=== PATIENT | female | born 1960 | race Caucasian/White ===

== ENCOUNTER 2018-01-11 16:53 | Emergency (ER) | payer MEDICARE ==
[2018-01-11] MEDS ORDERED: ASPIRIN 81 MG TABLET, CHEWABLE PO ONE (17:23)
[2018-01-11] MEDS ORDERED: IPRATROPIUM/ALBUTEROL 0.5-2.5 MG/3 ML AMPUL NEB ONE (17:28)
[2018-01-11] MEDS ORDERED: PREDNISONE 20 MG TABLET PO ONE (17:28)
--- NOTE | 2018-01-11 17:30 | ER Document Report ---
ED Medical Screen (RME) - General Chief Complaint: Chest Pain Stated Complaint: CHEST PAIN Time Seen by Provider: 01/11/18 17:22 Notes: The patient is a 57-year-old female, past medical history asthma, presents with 5 hours of worsening shortness of breath and chest pain. She took an albuterol inhaler and Motrin around 11:00. PE: Diffuse wheezing, mild tachypnea, RRR I have greeted and performed a rapid initial assessment of this patient. A comprehensive ED assessment and evaluation of the patient, analysis of test results and completion of the medical decision making process will be conducted by additional ED providers. TRAVEL OUTSIDE OF THE [place] IN LAST 30 DAYS: No - Related Data Allergies/Adverse Reactions: Penicillins Allergy (Verified 01/11/18 16:54) Sulfa (Sulfonamide Antibiotics) Allergy (Verified 01/11/18 16:54) Past Medical History - Social History Chew tobacco use (# tins/day): No Frequency of alcohol use: Rare Drug Abuse: None Pulmonary Medical History: Reports: Hx Asthma Renal/ Medical History: Denies: Hx Peritoneal Dialysis GI Medical History: Reports: Hx Gastroesophageal Reflux Disease Musculoskeltal Medical History: Reports Hx Arthritis - osteoarthritis Past Surgical History: Reports: Hx Abdominal Surgery - umbilical mesh Physical Exam - Vital signs Vitals: Temp Pulse Resp BP Pulse Ox 98.5 F 92 24 H 126/79 H 96 01/11/18 16:57 01/11/18 16:57 01/11/18 16:57 01/11/18 16:57 01/11/18 16:57 Course - Vital Signs Vital signs: Temp Pulse Resp BP Pulse Ox 98.5 F 92 24 H 126/79 H 96 01/11/18 16:57 01/11/18 16:57 01/11/18 16:57 01/11/18 16:57 01/11/18 16:57
--- NOTE | 2018-01-11 17:39 | RADIOLOGY REPORT (SQ) ---
EXAM DESCRIPTION: CHEST SINGLE VIEW COMPLETED DATE/TIME: 01/11/2018 5:31 pm REASON FOR STUDY: chest pain COMPARISON: None. EXAM PARAMETERS: NUMBER OF VIEWS: One view. TECHNIQUE: Single frontal radiographic view of the chest acquired. RADIATION DOSE: NA LIMITATIONS: None. FINDINGS: LUNGS AND PLEURA: Probable scarring at the left lung base. No opacities, masses or pneumo thorax. No pleural effusion. MEDIASTINUM AND HILAR STRUCTURES: No masses. Contour normal. HEART AND VASCULAR STRUCTURES: Heart normal in size. Normal vasculature. BONES: No acute findings. HARDWARE: None in the chest. OTHER: No other significant finding. IMPRESSION: NO ACUTE RADIOGRAPHIC FINDING IN THE CHEST. TECHNICAL DOCUMENTATION: JOB ID: [id number] [employer]- All Rights Reserved Reading location - IP/workstation name: [email or web address]
--- NOTE | 2018-01-11 17:57 | ER Document Report ---
ED General - General Mode of Arrival: Ambulatory Information source: Patient TRAVEL OUTSIDE OF THE [place] IN LAST 30 DAYS: No - HPI Onset: Just prior to arrival Onset/Duration: Sudden Quality of pain: Sharp, Stabbing Exacerbated by: Coughing, Deep breathing Relieved by: Denies Similar symptoms previously: No Recently seen / treated by doctor: No <SHASHI HUMMEL - Last Filed: 01/11/18 17:50> <JORDAN BETH - Last Filed: 01/11/18 22:15> - General Chief Complaint: Chest Pain Stated Complaint: CHEST PAIN Time Seen by Provider: 01/11/18 17:22 Notes: Patient presents to the ED with complaints of chest pain and shortness of breath. Shortness of breath has been going on for months. Her chest pain just started today. Sharp and stabbing sensation located in the right chest. No radiation. No alleviating symptoms. Pain worse with breathing. Patient has a history of asthma. Says that she uses a nebulizer machine at home. Has been taking her treatments without relief of symptoms. She's not on home oxygen. Patient is not on steroids or antibiotics. Denies history of COPD. Does not smoke. Patient denies history of CAD, HTN, hyperlipidemia, smoking, family history of CAD, DM. No recent travel, recent surgery, calf pain, history of DVT/ PE, history of malignancy, history of hormone use. (SHASHI HUMMEL) - Related Data Allergies/Adverse Reactions: Penicillins Allergy (Verified 01/11/18 16:54) Sulfa (Sulfonamide Antibiotics) Allergy (Verified 01/11/18 16:54) Past Medical History - General Information source: Patient - Social History Smoking Status: Never Smoker Chew tobacco use (# tins/day): No Frequency of alcohol use: Rare Drug Abuse: None Family History: Reviewed & Not Pertinent Patient has suicidal ideation: No Patient has homicidal ideation: No Pulmonary Medical History: Reports: Hx Asthma Renal/ Medical History: Denies: Hx Peritoneal Dialysis GI Medical History: Reports: Hx Gastroesophageal Reflux Disease Musculoskeltal Medical History: Reports Hx Arthritis - osteoarthritis Past Surgical History: Reports: Hx Abdominal Surgery - umbilical mesh <SHASHI HUMMEL - Last Filed: 01/11/18 17:50> Review of Systems - Review of Systems Constitutional: No symptoms reported EENT: No symptoms reported Cardiovascular: Chest pain Respiratory: Hurts to breathe, Short of breath, Wheezing Gastrointestinal: No symptoms reported Genitourinary: No symptoms reported Musculoskeletal: No symptoms reported Skin: No symptoms reported Neurological/Psychological: No symptoms reported -: Yes All other systems reviewed and negative <SHASHI HUMMEL - Last Filed: 01/11/18 17:50> Physical Exam - Vital signs Interpretation: Normal, Tachypneic <SHASHI HUMMEL - Last Filed: 01/11/18 17:50> <JORDAN BETH - Last Filed: 01/11/18 22:15> - Vital signs Vitals: Temp Pulse Resp BP Pulse Ox 98.5 F 92 24 H 126/79 H 96 01/11/18 16:57 01/11/18 16:57 01/11/18 16:57 01/11/18 16:57 01/11/18 16:57 - Notes Notes: PHYSICAL EXAMINATION: GENERAL: Well-appearing, well-nourished and in no acute distress. HEAD: Atraumatic, normocephalic. EYES: Pupils equal round and reactive to light, extraocular movements intact, conjunctiva are normal. ENT: Nares patent, oropharynx clear without exudates. Moist mucous membranes. NECK: Normal range of motion, supple without lymphadenopathy LUNGS: Diffuse wheezing. HEART: Regular rate and rhythm without murmurs. Anterior chest wall tenderness to palpation. ABDOMEN: Soft, nontender, nondistended abdomen. No guarding, no rebound. No masses appreciated. Female : deferred Musculoskeletal: Normal range of motion, no pitting or edema. No cyanosis. NEUROLOGICAL: Cranial nerves grossly intact. Normal speech, normal gait. Normal sensory, motor exams PSYCH: Normal mood, normal affect. SKIN: Warm, Dry, normal turgor, no rashes or lesions noted. (SHASHI HUMMEL ) Course <SHASHI HUMMEL - Last Filed: 01/11/18 17:50> - Laboratory Result Diagrams: 01/11/18 18:11 01/11/18 18:11 - Diagnostic Test Radiology reviewed: Image reviewed, Reports reviewed - EKG Interpretation by Me EKG shows normal: Sinus rhythm Rate: Normal Rhythm: NSR When compared to previous EKG there are: No significant change <JORDAN BETH - Last Filed: 01/11/18 22:15> - Re-evaluation Re-evalutation: Laboratory 01/11/18 01/11/18 01/11/18 18:11 18:11 18:11 WBC 6.5 RBC 4.79 Hgb 13.8 Hct 40.5 MCV 85 MCH 28.9 MCHC 34.1 RDW 14.0 Plt Count 303 Seg Neutrophils % 61.0 Lymphocytes % 30.7 Monocytes % 5.5 Eosinophils % 1.8 Basophils % 1.0 Absolute Neutrophils 3.9 Absolute Lymphocytes 2.0 Absolute Monocytes 0.4 Absolute Eosinophils 0.1 Absolute Basophils 0.1 D-Dimer Sodium 142.1 Potassium 4.5 Chloride 106 Carbon Dioxide 27 Anion Gap 9 BUN 15 Creatinine 0.69 Est GFR ( Amer) > 60 Est GFR (Non-Af Amer) > 60 Glucose 144 H Calcium 9.8 Total Bilirubin 0.7 Direct Bilirubin 0.3 Neonat Total Bilirubin Not Reportable Neonat Direct Bilirubin Not Reportable Neonat Indirect Bili Not Reportable AST 17 ALT 24 Alkaline Phosphatase 56 Creatine Kinase 31 CK-MB (CK-2) 0.56 Troponin I < 0.012 Total Protein 7.5 Albumin 4.3 01/11/18 01/11/18 18:11 21:10 WBC RBC Hgb Hct MCV MCH MCHC RDW Plt Count Seg Neutrophils % Lymphocytes % Monocytes % Eosinophils % Basophils % Absolute Neutrophils Absolute Lymphocytes Absolute Monocytes Absolute Eosinophils Absolute Basophils D-Dimer < 0.27 Sodium Potassium Chloride Carbon Dioxide Anion Gap BUN Creatinine Est GFR ( Amer) Est GFR (Non-Af Amer) Glucose Calcium Total Bilirubin Direct Bilirubin Neonat Total Bilirubin Neonat Direct Bilirubin Neonat Indirect Bili AST ALT Alkaline Phosphatase Creatine Kinase CK-MB (CK-2) Troponin I < 0.012 Total Protein Albumin Chest X-Ray 01/11/18 17:23 IMPRESSION: NO ACUTE RADIOGRAPHIC FINDING IN THE CHEST. Patient received in signout with repeat troponin and EKG pending. 01/11/18 22:01 Patient reevaluated and states that her chest pain is recurring. Dilaudid was administered. Repeat troponin pending. 01/11/18 22:11 Repeat EKG shows patient be in normal sinus rhythm at a rate of 93. QTc 454. No evidence of ST elevation. 01/11/18 22:11 Patient presents to the ED with complaints of chest pain and shortness of breath. Shortness of breath has been going on for months. Her chest pain just started today. Sharp and stabbing sensation located in the right chest. No radiation. No alleviating symptoms. Pain worse with breathing. Patient has a history of asthma. Says that she uses a nebulizer machine at home. Has been taking her treatments without relief of symptoms. She's not on home oxygen. Patient is not on steroids or antibiotics. Denies history of COPD. Does not smoke. Patient denies history of CAD, HTN, hyperlipidemia, smoking, family history of CAD, DM. No recent travel, recent surgery, calf pain, history of DVT/ PE, history of malignancy, history of hormone use 01/11/18 22:12 Repeat troponin within normal limits. Patient will be discharged home with prescription for prednisone. Patient provided the opportunity to ask questions , and express concerns. Discharge instructions discussed. Patient is agreeable with discharge home. Return indications explained and discussed with the patient who displays understanding. Patient encouraged to return to the emergency department immediately with any concerns. 01/11/18 22:15 (JORDAN BETH) - Vital Signs Vital signs: Temp Pulse Resp BP Pulse Ox 98.5 F 92 24 H 126/79 H 96 01/11/18 16:57 01/11/18 16:57 01/11/18 16:57 01/11/18 16:57 01/11/18 16:57 - Laboratory Laboratory results interpreted by me: 01/11/18 18:11 Glucose 144 H - EKG Interpretation by Me Additional EKG results interpreted by me: 01/11/18 17:58 EKG: Rate 80, WI interval 168, QRS duration 98, QTc 443, normal sinus rhythm, no ischemic changes. (SHASHI HUMMEL) Discharge <SHASHI HUMMEL - Last Filed: 01/11/18 17:50> <JORDAN BETH - Last Filed: 01/11/18 22:15> - Discharge Clinical Impression: Exacerbation of asthma Qualifiers: Asthma severity: moderate Asthma persistence: unspecified Qualified Code(s): J45.901 - Unspecified asthma with (acute) exacerbation Condition: Good Disposition: HOME, SELF-CARE Instructions: Asthma ([facility]), Chest Pain of Unclear Cause ([facility]) Additional Instructions: Follow up with your physician tomorrow for further care or return to the ED IMMEDIATELY if symptoms worsen or new concerns occur. If you cannot afford to follow up with your primary care physician a list of low cost clinics have been provided at the end of your discharge papers as well. Prescriptions: Guaifenesin/Pseudoephedrne HCl [Mucinex D ER 600-60 mg Tablet] 1 each PO Q12H # 14 tab.er.12h Prednisone [Deltasone 20 mg Tablet] 3 tab PO DAILY 5 Days #15 tablet Forms: Elevated Blood Pressure Referrals: WAI BANEGAS MD [Primary Care Provider] - Follow up as needed
[2018-01-11 18:24] LABS: ABSOLUTE BASOPHILS # (AUTO) 0.1 10^3/uL (0.0-0.2); ABSOLUTE EOSINOPHILS # (AUTO) 0.1 10^3/uL (0.0-0.6); ABSOLUTE MONOCYTES (AUTO) 0.4 10^3/uL (0.1-1.4); ABSOLUTE NEUT (AUTO) 3.9 10^3/uL (1.7-8.2); EOSINOPHILS % (AUTO) 1.8 % (0-6); HEMATOCRIT 40.5 % (36.0-47.0); HEMOGLOBIN 13.8 g/dL (12.0-15.5); LYMPHOCYTES % (AUTO) 30.7 % (13-45); MEAN CORPUSCULAR HEMOGLOBIN 28.9 pg (27.0-33.4); MEAN CORPUSCULAR HGB CONC 34.1 g/dL (32.0-36.0); MEAN CORPUSCULAR VOLUME 85 fl (80-97); MONOCYTES % (AUTO) 5.5 % (3-13); PLATELET COUNT 303 10^3/uL (150-450); RED BLOOD COUNT 4.79 10^6/uL (3.72-5.28); TOTAL CELLS COUNTED % (AUTO) 100 %; WHITE BLOOD COUNT 6.5 10^3/uL (4.0-10.5)
[2018-01-11 18:44] LABS: ALANINE AMINOTRANSFERASE 24 U/L (9-52); ALBUMIN 4.3 g/dL (3.5-5.0); ALKALINE PHOSPHATASE 56 U/L (38-126); ANION GAP 9 (5-19); ASPARTATE AMINO TRANSFERASE 17 U/L (14-36); BILIRUBIN,DIRECT 0.3 mg/dL (0.0-0.4); BILIRUBIN,TOTAL 0.7 mg/dL (0.2-1.3); BLOOD UREA NITROGEN 15 mg/dL (7-20); CALCIUM 9.8 mg/dL (8.4-10.2); CARBON DIOXIDE 27 mmol/L (22-30); CHLORIDE 106 mmol/L (98-107); CREATINE KINASE 31 U/L (30-135); GLUCOSE 144 mg/dL (75-110); POTASSIUM 4.5 mmol/L (3.6-5.0); SODIUM 142.1 mmol/L (137-145); TOTAL PROTEIN 7.5 g/dL (6.3-8.2)
--- NOTE | 2018-01-11 18:46 | EKG REPORT ---
SEVERITY:- NORMAL ECG - SINUS RHYTHM : Confirmed by: Himanshu Donaldson MD 11-Jan-2018 18:46:11
[2018-01-11] MEDS ORDERED: MORPHINE SULFATE 10 MG/ML INJ IV ONE (18:49)
[2018-01-11 18:54] LABS: CREATINE KINASE MB 0.56 ng/mL (<4.55)
[2018-01-11 18:56] LABS: TROPONIN I < 0.012 ng/mL
[2018-01-11] MEDS ORDERED: HYDROMORPHONE HCL INJ/PF 2 MG/ML AMPULE IV ONE (22:01)
[2018-01-11 22:26] VITALS: BP 117/87
--- NOTE | 2018-01-12 05:14 | EKG REPORT ---
SEVERITY:- NORMAL ECG - SINUS RHYTHM : Confirmed by: Himanshu Donaldson MD 12-Jan-2018 05:13:23
== END 2018-01-11 22:38 | disposition home or self-care (01) ==
LOC: ER 16:53
DX: J45.901 Unspecified asthma with (acute) exacerbation (principal); R07.9 Chest pain, unspecified
CPT/HCPCS: 93005; 94640; 99285; 96374; 96375; 36415; 82553; 82550; 85025; 80053; 84484; 85379; 71045; 93010; A9270 ×3; J2270; J1170; J7512; J7620